=== PATIENT | male | born 2000 | race Two or more races ===

== ENCOUNTER 2022-03-20 12:03 | Emergency (ER) | payer OTHER ==
[~2022-03-20] VITALS: Ht 182.9 cm; Wt 94.8 kg
--- NOTE | 2022-03-20 12:13 | NUR ---
[id number] C/O SEIZURE WITNESSED [id number], NO HISTORY OF SEIZURE, SKIN TEAR ON NOSE. THE PATIENT IS ALERT AND ORIENTED X3. DENIES PAIN. IN ROOM AIR AND DENIES SOB. RESPIRATION REGULAR AND UNLABORED. WILL CONTINUE TO MONITOR THE PATIENT.
--- NOTE | 2022-03-20 12:14 | NUR ---
IV LINE IS ESTABLISHED, BLOOD SPECIMEN COLLECTED AND SENT TO THE LAB. THE LINE IS SALINE LOCKED.
--- NOTE | 2022-03-20 12:24 | NUR ---
DR BOOTHE AT BEDSIDE FOR EVAL
[2022-03-20] MEDS ORDERED: IV NS 0.9% 1,000 ML BAG IV ONE (12:30)
--- NOTE | 2022-03-20 12:36 | NUR ---
PT TAKEN TO CT VIA [facility]
[2022-03-20 12:51] LABS: BASOPHILS % (AUTO) 0.5 % (0.0-2.0); EOSINOPHILS % (AUTO) 2.3 % (0.0-6.0); HEMATOCRIT 46 % (39-51); HEMOGLOBIN 15.4 g/dL (13.5-17.5); LYMPHOCYTES # (AUTO) 2.1 K/uL (0.8-4.8); MEAN CORPUSCULAR HGB CONC 33 g/dl (31.0-36.0); MEAN CORPUSCULAR VOLUME 89 fL (80-96); MONOCYTES # (AUTO) 0.8 K/uL (0.1-1.30); MONOCYTES % (AUTO) 10.6 % (2.0-12.0); NEUTROPHILS # (AUTO) 4.3 K/uL (1.8-8.9); NEUTROPHILS % (AUTO) 58.6 % (43.0-81.0); PLATELET COUNT (AUTO) 207 K/uL (150-450); RED BLOOD CELL COUNT(AUTO) 5.18 MIL/uL (4.5-6.0); WHITE BLOOD COUNT (AUTO) 7.4 K/uL (4.3-11.0)
[2022-03-20 13:14] LABS: CARBON DIOXIDE 29 mmol/L (21-32); CHLORIDE 103 mmol/L (98-107); GLUCOSE 105 mg/dL (74-106); POTASSIUM 3.9 mmol/L (3.5-5.1); SODIUM SERUM 141 mmol/L (136-145); UREA NITROGEN, BLOOD 10 mg/dL (7-18)
--- NOTE | 2022-03-20 13:21 | NUR ---
URINAL PROVIDED AT BEDSIDE; PT UNABLE TO PROVIDE URINE AT THIS TIME PER PT
[2022-03-20 13:32] LABS: ALCOHOL, BLOOD < 3 mg/dL (0-0)
--- NOTE | 2022-03-20 14:00 | NUR ---
URINE SAMPLE COLLECTED AND SENT TO LAB
--- NOTE | 2022-03-20 14:59 | NUR ---
IV removed. Catheter intact and site benign. Pressure and 4x4 applied to site. No bleeding noted.Patient discharged to home in stable condition. Written and verbal after care instructions given. Patient verbalizes understanding of instruction. The patient is picked up by her father.
[2022-03-20 15:00] VITALS: BP 117/62
== END 2022-03-20 15:01 | disposition home or self-care (01) ==
LOC: ER 12:08
DX: R55 Syncope and collapse (principal); R56.9 Unspecified convulsions; M25.531 Pain in right wrist; S00.31XA Abrasion of nose, initial encounter; W18.30XA Fall on same level, unspecified, initial encounter; Y93.89 Activity, other specified; Y92.89 Other specified places as the place of occurrence of the external cause; Y99.8 Other external cause status
CPT/HCPCS: 36415; 70450-TC; 71045-TC; 73110; 80048-TC; 82962-TC; 85025-TC; G0480